=== PATIENT | female | born 1940 | race Caucasian/White ===

== ENCOUNTER 2019-09-29 14:56 | Emergency (ER) | payer MEDICARE, OTHER ==
[~2019-09-29] VITALS: Ht 165.1 cm; Wt 64.0 kg
--- NOTE | 2019-09-29 15:18 | ED Cardiac General ---
History of Present Illness General Chief Complaint: Cardiac/General Problems Stated Complaint: ARRHYTHMIA Source: patient Exam Limitations: no limitations History of Present Illness Date Seen by Provider: Sep 29, 2019 Time Seen by Provider: 15:00 Initial Comments Patient arrives to the ER by private conveyance with her and chief complaint of racing heart rate, dysrhythmia approximately one hour prior to arrival. She was at [facility] for blepharoplasty and had not had any epinephrine injections of the eyelids yet. She had received 2 mg of Versed and 100 g of fentanyl and per the anesthesiologist report over the phone she was lightly sedated. Patient said she was a symptomatic throughout the entire ordeal that lasted for approximately 30 minutes and spontaneously resolved. Anesthesiologist sent strips over and says that she went into an SVT with a maximum rate of about 140 bpm. No history of atrial fibrillation or atrial flutter. No history of coronary disease. No family history of coronary disease. She does have hyperlipidemia and is on hormone replacement therapy as well as hypothyroidism. She takes a statin, aspirin, co-Q10 and several vitamins. She quit smoking 30+ years ago and has about a 65-jcon-mgom history. She does not use drugs. She drinks about 3 or 4 glasses of wine a week. She follows with her primary care doctor at [facility] and a couple years ago had some exertional dyspnea so she had a stress test by director pharmacology that was unremarkable. No cardiac catheterizations or stents. Patient maintains she had no symptoms before during or after. The anesthesiologist advises that they aborted the procedure and sent her here for further workup. The patient says she has an appointment Saturday, 6 days from now with her primary care nurse practitioner for her annual physical. Allergies and Home Medications Allergies Coded Allergies: erythromycin base (Verified Allergy, Unknown, hives, 09/29/19) Patient Home Medication List Home Medication List Reviewed: Yes Review of Systems Review of Systems Constitutional: No chills, No diaphoresis, No dizziness, No fever, No malaise, No weakness EENTM: No Blurred Vision, No Double Vision Respiratory: Denies Cough, Denies Shortness of Air Cardiovascular: Denies Chest Pain, Denies Edema Gastrointestinal: Denies Abdominal Pain, Denies Constipated, Denies Diarrhea, Denies Nausea, Denies Vomiting Genitourinary: Denies Burning, Denies Discharge Musculoskeletal: No back pain, No joint pain Skin: No pruritus, No rash Psychiatric/Neurological: Denies Headache, Denies Numbness, Denies Paresthesia Hematologic/Lymphatic: Denies Anemia, Denies Blood Clots All Other Systems Reviewed Negative Unless Noted: Yes Past Mpnqleu-Sxozaz-Hwyblo Hx Patient Social History Alcohol Use: Regular Use Alcohol Beverage of Choice: Wine (3/week) Recreational Drug Use: No Smoking Status: Former Smoker Type Used: Cigarettes (90-haiw-ysxz history 30 years ago) Recent Foreign Travel: No Contact w/Someone Who Travel: No Physical Exam Vital Signs Vital Signs - First Documented 09/29/19 15:00 Temp 36.4 Pulse 64 Resp 19 B/P (MAP) 142/68 (92) Pulse Ox 97 O2 Delivery Room Air Capillary Refill : Height, Weight, BMI Height: '" Weight: lbs. oz. kg; BMI Method: General Appearance: No Apparent Distress, WD/WN HEENT: PERRL/EOMI, Normal ENT Inspection, Pharynx Normal, Moist Mucous Membranes Neck: Full Range of Motion, Normal Inspection, Non Tender, Supple Respiratory: Lungs Clear, Normal Breath Sounds, No Accessory Muscle Use, No Respiratory Distress Cardiovascular: Regular Rate, Rhythm, No Edema, No Gallop, No JVD, No Murmur, Normal Peripheral Pulses Gastrointestinal: Non Tender, Soft Extremity: Normal Capillary Refill, Normal Inspection, Normal Range of Motion, Non Tender, No Calf Tenderness, No Pedal Edema Neurologic/Psychiatric: Alert, Oriented x3, Normal Mood/Affect Skin: Normal Color, Warm/Dry Progress/Results/Core Measures Results/Orders Lab Results Laboratory Tests Test 09/29/19 15:10 Range/Units White Blood Count 4.0 L 4.3-11.0 10^3/uL Red Blood Count 4.01 L 4.35-5.85 10^6/uL Hemoglobin 12.5 11.5-16.0 G/DL Hematocrit 39 35-52 % Mean Corpuscular Volume 96 80-99 FL Mean Corpuscular Hemoglobin 31 25-34 PG Mean Corpuscular Hemoglobin Concent 33 32-36 G/DL Red Cell Distribution Width 14.7 H 10.0-14.5 % Platelet Count 249 130-400 10^3/uL Mean Platelet Volume 11.1 H 7.4-10.4 FL Neutrophils (%) (Auto) 52 42-75 % Lymphocytes (%) (Auto) 29 12-44 % Monocytes (%) (Auto) 12 0-12 % Eosinophils (%) (Auto) 7 0-10 % Basophils (%) (Auto) 1 0-10 % Neutrophils # (Auto) 2.1 1.8-7.8 X 10^3 Lymphocytes # (Auto) 1.1 1.0-4.0 X 10^3 Monocytes # (Auto) 0.5 0.0-1.0 X 10^3 Eosinophils # (Auto) 0.3 0.0-0.3 10^3/uL Basophils # (Auto) 0.0 0.0-0.1 10^3/uL Sodium Level 139 135-145 MMOL/L Potassium Level 4.7 3.6-5.0 MMOL/L Chloride Level 106 98-107 MMOL/L Carbon Dioxide Level 20 L 21-32 MMOL/L Anion Gap 13 5-14 MMOL/L Blood Urea Nitrogen 11 7-18 MG/DL Creatinine 0.54 L 0.60-1.30 MG/DL Estimat Glomerular Filtration Rate > 60 BUN/Creatinine Ratio 20 Glucose Level 89 70-105 MG/DL Calcium Level 8.6 8.5-10.1 MG/DL Corrected Calcium 8.9 8.5-10.1 MG/DL Total Bilirubin 0.5 0.1-1.0 MG/DL Aspartate Amino Transf (AST/SGOT) 25 5-34 U/L Alanine Aminotransferase (ALT/SGPT) 15 0-55 U/L Alkaline Phosphatase 55 40-136 U/L Troponin I < 0.30 <0.30 NG/ML Pro-B-Type Natriuretic Peptide 190.4 H <75.0 PG/ML Total Protein 6.3 L 6.4-8.2 GM/DL Albumin 3.6 3.2-4.5 GM/DL My Orders Orders - JESSICA,NAHUN J Chest 1 View Ap/Pa Only (09/29/19 15:18) Cbc With Automated Diff (09/29/19 15:18) Comprehensive Metabolic Panel (09/29/19 15:18) Troponin I Fs (09/29/19 15:18) Continuous Ekg Monitoring (09/29/19 15:18) Ekg Tracing (09/29/19 15:18) Thyroid Stimulating Hormone (09/29/19 15:18) Ed Iv/Invasive Line Start (09/29/19 15:18) Probnp Fs (09/29/19 15:18) Vital Signs/I&O 09/29/19 15:00 Temp 36.4 Pulse 64 Resp 19 B/P (MAP) 142/68 (92) Pulse Ox 97 O2 Delivery Room Air Progress Progress Note : Time: 15:22 Progress Note The patient is accompanied by 2 separate 3-lead strips that are un-timed. The first one demonstrates a regular, narrow complex tachycardia without visible P waves measured at about 136 bpm. It is labeled "Singh Betancourt flat on bed 2 mg Versed 100 g fentanyl lightly sedated, asymptomatic". The second strip has a regular, narrow complex QRS in sinus rhythm without clinically relevant ST changes; measuring 79 bpm. It is labeled "Singh Betancourt converted on her own". Patient had a 30 minute episode of stable, narrow complex, asymptomatic, paroxysmal supraventricular tachycardia. We'll watch her on the monitor while obtaining some basic labs to include a TSH, troponin and BNP. Chest x-ray was unremarkable. Initial EKG is unremarkable. Her vital signs are within normal margins. If her labs are equally unremarkable then we will provide her with a copy of her chest x-ray and recommend she call her director pharmacology for a follow-up appointment within the next 7 days. Patient is okay with this plan. She is still asymptomatic in the ER. Initial ECG Impression Date: Sep 29, 2019 Initial ECG Impression Time: 15:08 Initial ECG Rate: 67 Initial ECG Rhythm: Normal Sinus Initial ECG Intervals: Normal Initial ECG Impression: Normal Initial ECG Comparisson: No Previous ECG Available Comment Normal sinus rhythm without clinically relevant ST T-wave elevation or depression. Diagnostic Imaging Diagonstic Imaging: Xray Plain Films/CT/US/NM/MRI: chest (1v) Comments NAME: SINGH BETANCOURT [facility] REC#: [id number] PT STATUS: REG ER : 1940 PHYSICIAN: NAHUN LOPEZ MD ADMIT DATE: 09/29/19/ER FS Draft Date of Exam:09/29/19 CHEST 1 VIEW AP/PA ONLY Indication: SVT. Time of Exam: 3:17 PM No prior studies are available for comparison. The heart size is normal. The pulmonary vascularity is unremarkable. The lungs are clear. No infiltrate, effusion or pneumothorax is detected. Impression: No acute cardiopulmonary process is detected. Dictated on workstation # [id number] Dict: 09/29/19 1527 Trans: 09/29/[address] [facility] [id number] Interpreted by: CHANTELLE WINKLER MD Electronically signed by: Reviewed: Reviewed by Me Departure Impression Primary Impression: History of PSVT (paroxysmal supraventricular tachycardia) Disposition: HOME, SELF-CARE Condition: Stable Departure-Patient Inst. Decision time for Depature: 16:04 Patient Instructions: Paroxysmal Supraventricular Tachycardia (DC) Add. Discharge Instructions: Tomorrow call your director pharmacology and request a follow-up appointment within the next 1-2 weeks for further evaluation of paroxysmal supraventricular tachycardia. Keep your follow-up appointment with your primary care doctor. Return to the nearest ER should you experience any chest pain, shortness of breath, dizziness, lightheadedness, palpitations or other persistent, worrisome symptoms. All discharge instructions reviewed with patient and/or family. Voiced understanding. NAHUN LOPEZ Sep 29, 2019 15:18
--- NOTE | 2019-09-29 15:29 | Diagnostic Imaging Report ---
Indication: SVT. Time of Exam: 3:17 PM No prior studies are available for comparison. The heart size is normal. The pulmonary vascularity is unremarkable. The lungs are clear. No infiltrate, effusion or pneumothorax is detected. Impression: No acute cardiopulmonary process is detected. Dictated by: Dictated on workstation # [id number]
[2019-09-29 15:33] LABS: BASOPHILS % (AUTO) 1 % (0-10); EOSINOPHILS % (AUTO) 7 % (0-10); HEMATOCRIT 39 % (35-52); HEMOGLOBIN 12.5 G/DL (11.5-16.0); LYMPHOCYTES # (AUTO) 1.1 X 10^3 (1.0-4.0); LYMPHOCYTES % (AUTO) 29 % (12-44); MEAN CORPUSCULAR HEMOGLOBIN 31 PG (25-34); MEAN CORPUSCULAR HGB CONC 33 G/DL (32-36); MEAN CORPUSCULAR VOLUME 96 FL (80-99); MEAN PLATELET VOLUME 11.1 FL (7.4-10.4); MONOCYTES % (AUTO) 12 % (0-12); NEUTROPHILS # (AUTO) 2.1 X 10^3 (1.8-7.8); NEUTROPHILS % (AUTO) 52 % (42-75); PLATELET COUNT 249 10^3/uL (130-400); RED CELL DISTRIBUTION WIDTH 14.7 % (10.0-14.5)
[2019-09-29 15:34] LABS: EOSINOPHILS # (AUTO) 0.3 10^3/uL (0.0-0.3); MONOCYTES # (AUTO) 0.5 X 10^3 (0.0-1.0)
[2019-09-29 16:00] LABS: ALANINE AMINOTRANSFERASE 15 U/L (0-55); ALBUMIN 3.6 GM/DL (3.2-4.5); ALKALINE PHOSPHATASE 55 U/L (40-136); BILIRUBIN,TOTAL 0.5 MG/DL (0.1-1.0); BUN/CREATININE RATIO 20; CALCIUM 8.6 MG/DL (8.5-10.1); CARBON DIOXIDE 20 MMOL/L (21-32); CHLORIDE 106 MMOL/L (98-107); CREATININE SERUM 0.54 MG/DL (0.60-1.30); GFR ESTIMATED > 60; GLUCOSE 89 MG/DL (70-105); POTASSIUM 4.7 MMOL/L (3.6-5.0); SODIUM 139 MMOL/L (135-145); TOTAL PROTEIN 6.3 GM/DL (6.4-8.2)
[2019-09-29 16:07] VITALS: BP 139/52
--- OUTSIDE RECORDS SUMMARY | 2019-09-29 17:52 | XMS REPORT | Continuity of Care Document ---
Demographics Preferred Language Unknown Marital Status Unknown Gnosticist Affiliation Unknown Race Unknown Ethnic Group Unknown Author Organization Unknown Address Unknown Phone Unavailable Allergies There is no data. Medications There is no data. Problems There is no data. Procedures There is no data. Results Test Result Range Complete blood count (CBC) with automate d white blood cell (WBC) differential - 09/29/19 15:10 Blood leukocytes automated count (number/volume) 4.0 10*3/uL 4.3-11.0 Blood erythrocytes automated count (number/volume) 4.01 10*6/uL 4.35-5.85 Venous blood hemoglobin measurement (mass/volume) 12.5 g/dL 11.5-16.0 Blood hematocrit (volume fraction) 39 % 35-52 Automated erythrocyte mean corpuscular volume 96 [ foz_us] 80-99 Automated erythrocyte mean corpuscular h emoglobin (mass per erythrocyte) 31 pg 25-34 Automated erythrocyte mean corpuscular h emoglobin concentration measurement (mass/volume) 33 g/dL 32-36 Automated erythrocyte distribution width ratio 14. 7 % 10.0- 14.5 Automated blood platelet count (count/volume) 249 10*3/uL 130-400 Automated blood platelet mean volume measurement 11.1 [foz_us] 7.4-10.4 Automated blood neutrophils/100 leukocytes 52 % 42-75 Automated blood lymphocytes/100 leukocytes 29 % 12-44 Blood monocytes/100 leukocytes 12 % 0-12 Automated blood eosinophils/100 leukocytes 7 % 0-10 Automated blood basophils/100 leukocytes 1 % 0-10 Blood neutrophils automated count (number/volume) 2.1 10*3 1.8-7.8 Blood lymphocytes automated count (number/volume) 1.1 10*3 1.0-4.0 Blood monocytes automated count (number/volume) 0. 5 10*3 0.0-1.0 Automated eosinophil count 0.3 10*3/uL 0 .0-0.3 Automated blood basophil count (count/volume) 0.0 10*3/uL 0.0-0.1 Comprehensive metabolic panel - 09/29/19 15:10 Serum or plasma sodium measurement (moles/volume) 139 mmol/L 135-145 Serum or plasma potassium measurement (moles/volume) 4.7 mmol/L 3.6-5.0 Serum or plasma chloride measurement (moles/volume) 106 mmol/L 98-107 Carbon dioxide 20 mmol/L 21-32 Serum or plasma anion gap determination (moles/volume) 13 mmol/L 5-14 Serum or plasma urea nitrogen measurement (mass/volume ) 11 mg/dL 7-18 Serum or plasma creatinine measurement (mass/volume) 0.54 mg/dL 0.60-1.30 Serum or plasma urea nitrogen/creatinine mass ratio 20 NRG Serum or plasma creatinine measurement w ith calculation of estimated glomerular filtration rate > NRG Serum or plasma glucose measurement (mass/volume) 89 mg/dL 70-105 Serum or plasma calcium measurement (mass/volume) 8.6 mg/dL 8.5-10.1 Serum or plasma total bilirubin measurement (mass/volu me) 0.5 mg/dL 0.1-1.0 Serum or plasma alkaline phosphatase jordana surement (enzymatic activity/volume) 55 U/L 40-136 Serum or plasma aspartate aminotransfera se measurement (enzymatic activity/volume) 25 U/L 5-34 Serum or plasma alanine aminotransferase measurement (enzymatic activity/volume) 15 U/L 0-55 Serum or plasma protein measurement (mass/volume) 6.3 g/dL 6.4-8.2 Serum or plasma albumin measurement (mass/volume) 3.6 g/dL 3.2-4.5 CALCIUM CORRECTED 8.9 mg/dL 8.5-10.1 TROPONIN I FS - 09/29/19 15:10 TROPONIN I FS < 0.30 <0.30 PROBNP FS - 09/29/19 15:10 PROBNP FS 190.4 pg/mL <75.0 Encounters ACCT No. Visit Date/Time Discharge Status Pt. Type Provider Facility Loc./Unit Complaint [id number] 09/29/2019 15:34:00 Document Registration
== END 2019-09-29 16:07 | disposition home or self-care (01) ==
LOC: ER FS 15:00
DX: I47.1 Supraventricular tachycardia (principal); E03.9 Hypothyroidism, unspecified; E78.00 Pure hypercholesterolemia, unspecified; Z79.890 Hormone replacement therapy; Z79.82 Long term (current) use of aspirin; Z88.1 Allergy status to other antibiotic agents; Z87.891 Personal history of nicotine dependence
CPT/HCPCS: 36415; 71045; 80053; 83880; 84443; 84484; 85025; 93005